=== PATIENT | female | born 1995 | race Caucasian/White ===

== ENCOUNTER 2020-05-16 14:55 | Inpatient (IN) | payer OTHER ==
[~2020-05-16] VITALS: Ht 162.6 cm; Wt 81.6 kg
[~2020-05-16 14:55] MED LIST: MACROBID 100 M100 MG PO; PYRIDIUM200 MG PO; ZOFRAN4 MG PO
[2020-05-16 16:24] LABS: HEMOGLOBIN 12.8 gm/dl (12.3-15.3); RED BLOOD COUNT 4.28 M/UL (4.00-5.10); WHITE BLOOD COUNT 6.7 K/UL (4.5-11.0)
[2020-05-16 17:03] LABS: BUN/CREATININE RATIO 8 (0-10)
[2020-05-16] MEDS ORDERED: LANTUS100 UNIT/1 SQ (19:10)
[2020-05-16] MEDS ORDERED: LEVOTHYROXINE50 MC1 PO (19:12)
[2020-05-16] MEDS ORDERED: GLUCOPHAGE 500500 MG PO (19:13)
[2020-05-17 06:00] LABS: HEMOGLOBIN 13.2 gm/dl (12.3-15.3); RED BLOOD COUNT 4.43 M/UL (4.00-5.10)
[2020-05-17 07:05] LABS: BUN/CREATININE RATIO 15 (0-10)
[2020-05-17 19:20] LABS: URINE TOTAL PROTEIN 19 mg/dl
== END 2020-05-17 20:08 | disposition home or self-care (01) | DRG 833 ==
LOC: GENOP 14:55 → OB 19:29
PROVIDERS: ADMIT Obstetrics & Gynecology
DX: O26.893 Other specified pregnancy related conditions, third trimester (principal); E87.6 Hypokalemia; O24.414 Gestational diabetes mellitus in pregnancy, insulin controlled; R03.0 Elevated blood-pressure reading, without diagnosis of hypertension; E03.9 Hypothyroidism, unspecified; O99.283 Endocrine, nutritional and metabolic diseases complicating pregnancy, third trimester; Z3A.35 35 weeks gestation of pregnancy; Z90.49 Acquired absence of other specified parts of digestive tract; Z72.0 Tobacco use; Z79.4 Long term (current) use of insulin
CPT/HCPCS: 36415; 80053; 81001; 82570; 82962; 84132; 84156; 84550; 85025; 96372; J0702; U0002

== ENCOUNTER 2020-05-19 09:29 | Outpatient (CLI) | payer OTHER ==
[~2020-05-19 09:29] MED LIST changes: +GLUCOPHAGE 500500 MG PO; +LANTUS100 UNIT/1 SQ; +LEVOTHYROXINE50 MC1 PO
[2020-05-19 11:28] LABS: RED BLOOD COUNT 4.02 M/UL (4.00-5.10); WHITE BLOOD COUNT 8.3 K/UL (4.5-11.0)
[2020-05-19 11:45] LABS: BUN/CREATININE RATIO 15 (0-10)
== END 2020-05-19 14:25 | disposition short-term general hospital (02) ==
LOC: GENOP 09:29
PROVIDERS: Obstetrics & Gynecology
DX: O26.893 Other specified pregnancy related conditions, third trimester (principal); R10.9 Unspecified abdominal pain; M54.9 Dorsalgia, unspecified; E03.9 Hypothyroidism, unspecified; E11.9 Type 2 diabetes mellitus without complications; O24.113 Pre-existing type 2 diabetes mellitus, in pregnancy, third trimester; Z79.84 Long term (current) use of oral hypoglycemic drugs; Z3A.35 35 weeks gestation of pregnancy
CPT/HCPCS: 80053; 81001; 82570; 82962; 83615; 84156; 84550; 85025; 85384; 85610; 85730; G0463

== ENCOUNTER → 2020-09-02 | Outpatient (CLI) | payer OTHER | LOC: EXRD 12:59 | DX: E04.9 Nontoxic goiter, unspecified (principal) | CPT/HCPCS: 76536 ==